=== PATIENT | male | born 1960 | race Caucasian/White ===

== ENCOUNTER 2016-12-21 09:48 | Emergency (ER) | payer BC ==
[2016-12-21 10:01] VITALS: TEMP 98.1
[2016-12-21] MEDS ORDERED: ONDANSETRON 4 MG/2 ML VIAL IVP ONE (10:26)
[2016-12-21] MEDS ORDERED: NS 1,000 ML IV ONE (10:26)
[2016-12-21 10:36] LABS: ADD DIFF? NO; ADD MORPH? NO; ADD SCAN? NO; ATYPICAL LYMPHOCYTE FLAG 50 (0-99); FRAGMENT RBC FLAG 0 (0-99); HEMATOCRIT 46.2 % (40.0-51.0); HEMOGLOBIN 15.9 g/dL (13.7-17.5); LEFT SHIFT FLG 0 (0-99); LIPEMIA HEMOLYSIS FLAG 90 (0-99); MEAN CELL HEMOGLOBIN CONCENTR. 34.4 g/dL (32.4-36.7); MEAN CELL VOLUME 98.7 fL (81.5-99.8); MEAN PLATELET VOLUME 10.4 fL (8.7-11.7); PLATELET CLUMPS FLAG 0 (0-99); PLATELET COUNT 221 10^3/uL (150-400); RED BLOOD CELL COUNT 4.68 10^6/uL (4.40-6.38); RED CELL DISTRIBUTION WIDTH 12.3 % (11.5-15.2)
[2016-12-21 10:49] LABS: SEDIMENTATION RATE 9 MM/HR (0-20)
--- NOTE | 2016-12-21 10:49 | EDPHY ---
H & P Stated Complaint: lower back pain x 3-4 day. R groin pain Source: Patient, Family - Personal History Current Tetanus/Diphtheria Vaccine: Yes Current Tetanus Diphtheria and Acellular Pertussis (TDAP): Yes - Medical/Surgical History Hx Asthma: Yes Hx Chronic Respiratory Disease: No Hx Diabetes: No Hx Cardiac Disease: No Hx Renal Disease: No Hx Cirrhosis: No Hx Alcoholism: No Hx HIV/AIDS: No Hx Splenectomy or Spleen Trauma: No Other PMH: CVA, PE, Rt MARY JANE, DVT, C-spine fusion, post surgical hemorrhage, neuralgia upper left and lower right - Social History Smoking Status: Never smoked HPI/ROS: CHIEF COMPLAINT: Low back pain HISTORY OF PRESENT ILLNESS: 7 days history of lumbar back pain. This is spontaneous without any trauma. It is moderate to severe pain. So severe that he needs to stand up or ambulate. Worse with any kind of palpation or sitting down. Also worse when standing from a seated position. There is no numbness or tingling of the genitals. No weakness of lower extremities. No incontinence or retention of bowel or bladder. Does have some existing peripheral neuropathy that is unchanged. There may be some radicular pain to the right thigh but he is not entirely sure. Does not Inject IV drugs. Does not have a history of epidural abscess or acute cord compression or cauda equina. He does have a history of low back pain without a definitive diagnosis. Also has a history of cervical back pain with prior surgical intervention no fever or chills but does have a recent illness last week that has resolved without intervention. No other associated complaints or modifying factors. No use of anticoagulants. REVIEW OF SYSTEMS: Ten systems reviewed and are negative unless otherwise noted in the HPI EXAMINATION General Appearance: Alert, no distress Head: normocephalic, atraumatic Eyes: Pupils equal and round, no conjunctival pallor or injection ENT, Mouth: Mucous membranes moist . Uvula midline. No edema, lesions or erythema Neck: Normal inspection, supple, non-tender. Painless range of motion all planes. Respiratory: Lungs are clear to auscultation. no wheezing, rhonchi or crackles. Cardiovascular: Regular rate and rhythm . Pulses intact distally with 2+ radial, PT and DP pulses. Gastrointestinal: Abdomen is soft and nontender Back: lumbar: Tender to palpation midline and paraspinous musculature. No crepitus, step-off or deformity. Range of motion limited by pain. He does have some flexion, extension and lateral flexion but limited due to pain. No tenderness of the cervical or thoracic spine midline or soft tissue. Neurological: A&O, nonfocal, Antalgic but steady gait. Her patellar reflexes symmetric 2+. Sensory intact and symmetric distally. Strength is 5/5 in all limbs. Skin: Warm and dry, no rash . No petechiae or purpura. Extremities: Nontender, no pedal edema Psychiatric: Mood and affect normal DIFFERENTIAL DIAGNOSES: Including but not limited to acute low back pain, lumbar strain, low back sprain , Lumbar radiculopathy, diskitis, epidural abscess MDM: 10:30 a.m. atraumatic low back pain. There is no evidence of acute cord compression or cauda equina, in the absence of trauma I have ordered an MRI to further delineate his pain. Vital signs were well within normal limits. He is neuro intact distally. Labs and MRI are pending. 12:00 p.m. notified by radiologist Dr. Elena regarding the MRI. He notes no acute cord compression, diskitis or epidural abscess. He does note changes as listed in his report. Most specifically his acute annular tear at L5-S1. There is some stenosis without any cord edema. I reexamined the patient remains neurovascular intact distally. He is discharged home with steroid and muscle relaxant and instructions to take his previously prescribed oxycodone. He will be instructed to follow up with Neurosurgery. He thinks he has an appointment pending with his established neurosurgeon from the [facility], and he will contact them 1st. Return to the emergency department cautions for worsening pain, numbness or tingling, saddle anesthesia, incontinence of bowel or bladder, lower extremity weakness. Patient is comfortable this plan discharged home in stable condition. SUPERVISION: Patient was evaluated in conjunction with the supervising physician. Please see their note for details. (Riley Price) Constitutional: Initial Vital Signs Temperature (C) 98.1 F 12/21/16 09:59 Heart Rate 61 12/21/16 09:59 Respiratory Rate 18 12/21/16 09:59 Blood Pressure 102/69 12/21/16 09:59 O2 Sat (%) 98 12/21/16 09:59 O2 Delivery Mode Room Air Allergies/Adverse Reactions: Penicillins Allergy (Unknown, Verified 07/22/16 10:29) Home Medications: Medication Instructions Recorded GABAPENTIN 01/15/15 Lamictal 01/15/15 Soma (RX) 01/15/15 Ambien 10 mg 05/30/15 oxyCODONE/APAP 5/325 [Percocet 1 tab PO Q6 #10 tab 05/30/15 5/325] Ondansetron Odt [Zofran Odt 4 mg 4 mg PO Q4 07/22/16 (*)] Cyclobenzaprine [Flexeril 10 MG 10 mg PO TID PRN #15 tab 12/21/16 (*)] Valium 12/21/16 predniSONE 60 mg PO DAILY #15 tab 12/21/16 Medical Decision Making ED Course/Re-evaluation: PHYSICIAN DOCUMENTATION: The patient was evaluated and managed by the Physician Farm Equipment Maintenance Supervisor and myself. I have reviewed the chart and agree with the findings and plan of care as documented. In addition, I examined the patient myself at 1040. History confirmed as lower lumbar back pain worse with bending over but not associated with weakness or numbness in extremities. No abdominal pain or syncope. Physical findings as follows: Straight leg raising positive bilaterally but the patient is ambulatory. He has some lumbar spine tenderness to palpation. He tells me he has a pro coagulant disorder but on workup nothing specific has been diagnosed. Risk benefit alternative MRI discussed and consent. I am the secondary supervising physician. (Delio Mendez) - Data Points Laboratory Results: Laboratory Results 12/21/16 10:28 12/21/16 10:45 12/21/16 12/21/16 10:45 10:28 WBC 3.76 L 10^3/uL (3.80-9.50) RBC 4.68 10^6/uL (4.40-6.38) Hgb 15.9 g/dL (13.7-17.5) Hct 46.2 % (40.0-51.0) MCV 98.7 fL (81.5-99.8) MCH 34.0 pg (27.9-34.1) MCHC 34.4 g/dL (32.4-36.7) RDW 12.3 % (11.5-15.2) Plt Count 221 10^3/uL (150-400) MPV 10.4 fL (8.7-11.7) Neut % (Auto) 56.4 % (39.3-74.2) Lymph % (Auto) 28.5 % (15.0-45.0) Person % (Auto) 12.2 % (4.5-13.0) Eos % (Auto) 2.4 % (0.6-7.6) Baso % (Auto) 0.5 % (0.3-1.7) Nucleat RBC Rel Count 0.0 % (0.0-0.2) Absolute Neuts (auto) 2.12 10^3/uL (1.70-6.50) Absolute Lymphs (auto) 1.07 10^3/uL (1.00-3.00) Absolute Monos (auto) 0.46 10^3/uL (0.30-0.80) Absolute Eos (auto) 0.09 10^3/uL (0.03-0.40) Absolute Basos (auto) 0.02 10^3/uL (0.02-0.10) Absolute Nucleated RBC 0.00 10^3/uL (0-0.01) Immature Gran % 0.0 % (0.0-1.1) Immature Gran # 0.00 10^3/uL (0.00-0.10) ESR 9 MM/HR (0-20) PT 13.8 SEC REJ (12.0-15.0) INR 1.07 REJ (0.83-1.16) APTT 31.7 SEC REJ (23.0-38.0) Sodium 141 mEq/L REJ (134-144) Potassium 4.8 mEq/L REJ (3.5-5.2) Chloride 105 mEq/L REJ (97-110) Carbon Dioxide 23 mEq/l REJ (22-31) Anion Gap 13 mEq/L REJ (8-16) BUN 21 mg/dL REJ (7-23) Creatinine 0.9 mg/dL REJ (0.7-1.3) Estimated GFR > 60 REJ Glucose 88 mg/dL REJ (70-100) Calcium 8.6 mg/dL REJ (8.5-10.4) C-Reactive Protein 18.0 H mg/L REJ (<10.0) Medications Given: Discontinued Medications Sodium Chloride (Ns) 1,000 mls @ 0 mls/hr IV ONCE ONE PRN Reason: Wide Open Stop: 12/21/16 10:27 Last Admin: 12/21/16 10:40 Dose: 1,000 mls Morphine Sulfate (Morphine) 6 mg IVP Q1HR ONE Stop: 12/21/16 10:27 Last Admin: 12/21/16 10:40 Dose: 6 mg Ondansetron HCl (Zofran) 4 mg IVP EDNOW ONE Stop: 12/21/16 10:27 Last Admin: 12/21/16 10:41 Dose: 4 mg Departure - Departure Disposition: Home, Routine, Self-Care Clinical Impression: Degenerative disc disease at L5-S1 level, Annular disc tear Condition: Good Instructions: Lumbar Disc Herniation (ED), Lumbar Radiculopathy (ED) Additional Instructions: Follow-up with Neurosurgery for definitive care. ER precautions as discussed. Prescriptions as needed. Referrals: Darrell Linares MD [Primary Care Provider] - As per Instructions Anil Black MD [Medical Doctor] - As per Instructions Prescriptions: Cyclobenzaprine [Flexeril 10 MG (*)] 10 mg PO TID PRN #15 tab PRN Reason: Spasms predniSONE 60 mg PO DAILY #15 tab
[2016-12-21] MEDS ORDERED: GADOBUTROL 10 ML VIAL IVP ONE (11:01)
[2016-12-21 11:03] LABS: APTT 31.7 SEC (23.0-38.0); INR 1.07 (0.83-1.16); PROTIME(PATIENT) 13.8 SEC (12.0-15.0)
[2016-12-21 11:26] LABS: ANION GAP 13 mEq/L (8-16); CALCIUM 8.6 mg/dL (8.5-10.4); CARBON DIOXIDE 23 mEq/l (22-31); CHLORIDE 105 mEq/L (97-110); CREATININE 0.9 mg/dL (0.7-1.3); GLOMERULAR FILTRATION RATE > 60; GLUCOSE 88 mg/dL (70-100); POTASSIUM 4.8 mEq/L (3.5-5.2); SODIUM 141 mEq/L (134-144)
--- NOTE | 2016-12-21 12:02 | MR ---
MRI of the Lumbar Spine (Without and With Contrast) History: Lumbar pain with right hip radiculopathy, evaluate for diskitis, sick recently. Technique: Sagittal and axial T1 and T2 second echo imaging with fat suppression. Postcontrast (7.5 m L intravenous Gadavist) sagittal and axial T1-weighted images. 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 There is dorsal epidural fat which contributes to the decreased size of the neura l canal. Lumbar alignment is anatomic. The conus medullaris occurs at L1-L2 and appears normal. There is no abnormal disk space fluid or enhancement to suggest diskitis. There is no prevertebral or para vertebral fluid. There are large disk protrusions that extend into the anterior prevertebral soft tis sues at L1-L2 and L3-L4. There is mild disk space narrowing of T12-L1, L1-L2 and moderate disk space narrowing of L3-L4. There are incidental small fat islands in the T12-L1 and L2 vertebral bodies. Matthew ne marrow signal is fairly low on the T1 nonenhanced images raising the possibility of marrow hyperpl lisa. There is fatty replacement of the marrow in the sacrum below S1.The abdominal aorta is normal i n size. There is no para-aortic adenopathy. Incidentally noted are 2 left and one right renal cysts. T11-T12: Mild disk bulge. T12-L1: Mild disk bulge. L1-L2: A diffuse moderate disk bulge coupled with ligamentum flavum hypertrophy and dorsal epidural f at leads to severe central neural canal stenosis at the level of the tip of the conus medullaris were virtually no CSF remains. Both neural foramen remain patent, although there is asymmetrical disk bul ging in the lower left foramen where there is some annular enhancement suggesting an underlying annul ar tear. L2-L3: There is a moderate central disk bulge. Coupled with ligamentum flavum hypertrophy and dorsal epidural fat there is less severe central neural canal stenosis at this level. A small amount of CSF remains around the clustered nerve roots.Both foramen remain patent. L3-L4: There is a mild-moderate disk bulge. Right a bit of CSF remains at this level. Both foramen re main patent although there is moderate bilateral narrowing ,left greater than right, secondary to dis k bulging and facet migration bilaterally. L4-L5: There is a mild central disk bulge. Both neural foramen are moderately narrowed secondary to f acet migration, but remain patent. Abundant CSF is present in the central canal. L5-S1: There is a minimal central disk bulge. Both foramen are widely patent. There is a brightly enh ancing annular tear in the left lower foramen. Impression: 1. Multilevel degenerative disk disease superimposed upon a congenitally small neural can al. The worst central canal stenosis is at L1-L2. 2. No evidence for diskitis. 3. Brightly enhancing annular tear in the left L5-S1 neural foramen. 4. Generally low T1 signal within the vertebral bodies.? Marrow hyperplasia. Is this patient anemic o r a cigarette smoker?
[2016-12-21 12:34] VITALS: BP 101/71; PULSE 64; RESP 16; O2SAT 95
== END 2016-12-21 12:34 | disposition home or self-care (01) ==
DX: M51.37 Other intervertebral disc degeneration, lumbosacral region (principal); J45.909 Unspecified asthma, uncomplicated; Z86.73 Personal history of transient ischemic attack (TIA), and cerebral infarction without residual deficits
CPT/HCPCS: 96374; A9585; J2405

== ENCOUNTER → 2017-10-27 | Outpatient (CLI) | payer BC ==
[~2017-10-27] MED LIST: GADOBUTROL 10 ML VIAL IVP ONE
== END ==
LOC: FIMAGING 18:54
PROVIDERS: ATTEND Psychiatry & Neurology Neurology
DX: M48.02 Spinal stenosis, cervical region (principal)
CPT/HCPCS: A9585